=== PATIENT | female | born 1945 | race African-American/Black ===

== ENCOUNTER 2019-05-16 11:17 | Day surgery (SDC) | payer OTHER ==
[2019-05-16 11:59] VITALS: BMI 28.3
[2019-05-16] MEDS ORDERED: PROPOFOL 20 ML ONE ×2 (12:19)
[2019-05-16 14:28] VITALS: TEMP 98.2
[2019-05-16 14:43] VITALS: PULSE 88
[2019-05-16 14:45] VITALS: BP 134/66
== END 2019-05-16 13:52 | disposition home or self-care (01) ==
LOC: FASU-ENDO 11:17
PROVIDERS: ATTEND Internal Medicine Gastroenterology
PROC: 0DJD8ZZ Inspection of Lower Intestinal Tract, Via Natural or Artificial Opening Endoscopic (ICD-10-PCS; principal; 2019-05-16 12:56)
DX: Z12.11 Encounter for screening for malignant neoplasm of colon (principal); K57.30 Diverticulosis of large intestine without perforation or abscess without bleeding

== ENCOUNTER 2021-07-13 13:04 | Inpatient (IN) | payer OTHER ==
[2021-07-13 16:28] LABS: EPI CELLS 9 /uL (0-25.1); HYALINE CASTS 1 /uL (0-3.1); URINE APPEARANCE CLEAR; URINE BACTERIA 8098 /uL (0-1359); URINE BILIRUBIN NEGATIVE (NEGATIVE); URINE COLOR YELLOW; URINE GLUCOSE (UA) NEGATIVE (NEGATIVE); URINE KETONE NEGATIVE (NEGATIVE); URINE LEUK ESTERASE 2+ (NEGATIVE); URINE NITRITE POSITIVE (NEGATIVE); URINE PROTEIN NEGATIVE (NEGATIVE); URINE RBC 9 /uL (0-23.9); URINE UROBILINOGEN 0.2 mg/dL (0.2-1.0); URINE WBC 115 /uL (0-25.8)
[2021-07-13] MEDS ORDERED: CEFTRIAXONE 1 GM in DEXTROSE 5%-WATER - 100 ML IVPB ONE (16:35)
[2021-07-13] MEDS ORDERED: CEFTRIAXONE 1 GM/50 ML BAG ONE (16:40)
[2021-07-13 16:48] LABS: BASO % 0.2 % (0-2.0); EOS % 1.2 % (0-4.5); HEMATOCRIT 36.3 % (32.4-45.2); HEMOGLOBIN 11.5 GM/dL (10.7-15.3); LYMPH % 16.7 % (8-40); MCH 25.6 pg (25.7-33.7); MCHC 31.7 g/dl (32.0-36.0); MEAN CELL VOLUME 80.8 fl (80-96); MEAN PLT VOLUME 8.3 fl (7.5-11.1); MONO % 5.8 % (3.8-10.2); NEUT % 76.1 % (42.8-82.8); PLATELET COUNT 177 10^3/uL (134-434); RDW 15.4 % (11.6-15.6); WHITE BLOOD COUNT 4.7 K/mm3 (4.0-10.0)
[2021-07-13 16:52] LABS: BLOOD UREA NITROGEN 7.9 mg/dL (7-18); CALCIUM 8.6 mg/dL (8.5-10.1)
[2021-07-13 16:53] LABS: ALBUMIN 3.4 g/dl (3.4-5.0)
[2021-07-13 16:57] LABS: BILIRUBIN,TOTAL 0.3 mg/dL (0.2-1); CREATININE 0.9 mg/dL (0.55-1.3); TOT PROT 7.3 g/dl (6.4-8.2)
[2021-07-13 17:00] LABS: N-TERMINAL BNP 91.2 pg/ml (5-450)
[2021-07-13] MEDS: DOCUSATE SODIUM 100 MG CAPSULE (FP) PO SCH (21:59)
[2021-07-13] MEDS: ATORVASTATIN CA 10 MG TABLET (FP) PO SCH (21:59)
[2021-07-14 03:10] VITALS: BMI 29.9
[2021-07-14 08:15] LABS: HEMATOCRIT 35.7 % (32.4-45.2); HEMOGLOBIN 11.5 GM/dL (10.7-15.3); MCHC 32.2 g/dl (32.0-36.0); MEAN CELL VOLUME 80.8 fl (80-96); MEAN PLT VOLUME 8.1 fl (7.5-11.1); PLATELET COUNT 166 10^3/uL (134-434); RBC 4.42 M/mm3 (3.60-5.2); RDW 15.2 % (11.6-15.6); WHITE BLOOD COUNT 4.3 K/mm3 (4.0-10.0)
[2021-07-14 08:44] LABS: BLOOD UREA NITROGEN 8.3 mg/dL (7-18); CALCIUM 9.1 mg/dL (8.5-10.1)
[2021-07-14 08:45] LABS: ALBUMIN 3.2 g/dl (3.4-5.0); MAGNESIUM 2.3 mg/dL (1.8-2.4)
[2021-07-14 08:47] LABS: PHOSPHOROUS 3.5 mg/dL (2.5-4.9)
[2021-07-14 08:48] LABS: CREATININE 0.8 mg/dL (0.55-1.3)
[2021-07-14 08:49] LABS: BILIRUBIN,TOTAL 0.3 mg/dL (0.2-1)
[2021-07-14] MEDS ORDERED: cefTRIAXone SODIUM 1 GM VIAL ONE (09:30)
[2021-07-14] MEDS ORDERED: DEXTROSE 5%-WATER - 50 ML IVPB ONE (09:30)
[2021-07-14] MEDS: ISOSORBIDE MONONITRATE 30 MG TAB.SR.24H (FP) PO SCH (09:37)
[2021-07-14] MEDS: ENOXAPARIN NA (PORCINE) 40 MG/0.4 ML DISP.SYRIN SQ SCH (09:37)
[2021-07-14] MEDS: DOCUSATE SODIUM 100 MG CAPSULE (FP) PO SCH ×2 (09:37→23:10)
[2021-07-14] MEDS: LEVOTHYROXINE NA 25 MCG TABLET (FP) PO SCH (09:37)
[2021-07-14] MEDS: CEFTRIAXONE 1 GM in DEXTROSE 5%-WATER - 50 ML IVPB SCH (09:38)
[2021-07-14] MEDS ORDERED: OLANZapine 2.5 MG TABLET PO SCH (10:00)
[2021-07-14] MEDS ORDERED: PATIENT'S OWN MEDICATION (NON-FORMULARY) (Mirabegron [Myrbetriq] 25 MG Tab.Er.24h) PO SCH (10:00)
[2021-07-14] MEDS ORDERED: POLYETHYLENE GLYCOL 3350 119 GM BTL PO SCH (10:00)
[2021-07-14] MEDS: POLYETHYLENE GLYCOL (HEALTHYLAX) 3350 17 GM PACKET PO SCH (11:11)
[2021-07-14] MEDS: AMANTADINE HCL 100 MG TABLET PO SCH (11:35)
[2021-07-14] MEDS ORDERED: MECLIZINE HCL 25 MG TABLET (FP) PO PRN (15:40)
[2021-07-14] MEDS: ATORVASTATIN CA 10 MG TABLET (FP) PO SCH (23:10)
[2021-07-15] MEDS: LEVOTHYROXINE NA 25 MCG TABLET (FP) PO SCH (06:28)
[2021-07-15 07:46] LABS: BASO % 0.3 % (0-2.0); EOS % 2.9 % (0-4.5); HEMATOCRIT 34.9 % (32.4-45.2); HEMOGLOBIN 11.5 GM/dL (10.7-15.3); LYMPH % 19.1 % (8-40); MCH 26.2 pg (25.7-33.7); MCHC 32.8 g/dl (32.0-36.0); MEAN CELL VOLUME 79.9 fl (80-96); MEAN PLT VOLUME 8.3 fl (7.5-11.1); MONO % 8.1 % (3.8-10.2); NEUT % 69.6 % (42.8-82.8); PLATELET COUNT 171 10^3/uL (134-434); RBC 4.38 M/mm3 (3.60-5.2); RDW 15.5 % (11.6-15.6); WHITE BLOOD COUNT 3.8 K/mm3 (4.0-10.0)
[2021-07-15 08:00] LABS: CALCIUM 8.5 mg/dL (8.5-10.1)
[2021-07-15 08:01] LABS: BLOOD UREA NITROGEN 13.2 mg/dL (7-18)
[2021-07-15] MEDS ORDERED: DEXTROSE 5%-WATER - 50 ML IVPB ONE (10:19)
[2021-07-15] MEDS ORDERED: cefTRIAXone SODIUM 1 GM VIAL ONE (10:19)
[2021-07-15] MEDS: ISOSORBIDE MONONITRATE 30 MG TAB.SR.24H (FP) PO SCH (10:25)
[2021-07-15] MEDS: DOCUSATE SODIUM 100 MG CAPSULE (FP) PO SCH ×2 (10:25→22:30)
[2021-07-15] MEDS: ASPIRIN COATED 81 MG TABLET.EC PO SCH (10:25)
[2021-07-15] MEDS: AMANTADINE HCL 100 MG TABLET PO SCH (10:25)
[2021-07-15] MEDS: OLANZapine 10 MG TABLET PO SCH (10:25)
[2021-07-15] MEDS: POLYETHYLENE GLYCOL (HEALTHYLAX) 3350 17 GM PACKET PO SCH (10:26)
[2021-07-15] MEDS: CEFTRIAXONE 1 GM in DEXTROSE 5%-WATER - 50 ML IVPB SCH (10:26)
[2021-07-15] MEDS: ENOXAPARIN NA (PORCINE) 40 MG/0.4 ML DISP.SYRIN SQ SCH (10:26)
[2021-07-15] MEDS: ATORVASTATIN CA 10 MG TABLET (FP) PO SCH (22:30)
[2021-07-16] MEDS: LEVOTHYROXINE NA 25 MCG TABLET (FP) PO SCH (06:06)
[2021-07-16 07:09] LABS: BASO % 0.3 % (0-2.0); EOS % 3.6 % (0-4.5); HEMATOCRIT 36.2 % (32.4-45.2); HEMOGLOBIN 11.5 GM/dL (10.7-15.3); LYMPH % 23.2 % (8-40); MCH 25.7 pg (25.7-33.7); MCHC 31.9 g/dl (32.0-36.0); MEAN CELL VOLUME 80.8 fl (80-96); MEAN PLT VOLUME 8.5 fl (7.5-11.1); NEUT % 64.9 % (42.8-82.8); PLATELET COUNT 168 10^3/uL (134-434); RBC 4.48 M/mm3 (3.60-5.2); RDW 15.4 % (11.6-15.6); WHITE BLOOD COUNT 4.2 K/mm3 (4.0-10.0)
[2021-07-16 07:27] LABS: CALCIUM 8.4 mg/dL (8.5-10.1)
[2021-07-16 07:28] LABS: BLOOD UREA NITROGEN 13.4 mg/dL (7-18)
[2021-07-16 07:34] LABS: CREATININE 0.9 mg/dL (0.55-1.3)
[2021-07-16 08:53] VITALS: BP 134/78; PULSE 71; TEMP 97.9
[2021-07-16] MEDS ORDERED: cefTRIAXone SODIUM 1 GM VIAL ONE (10:19)
[2021-07-16] MEDS ORDERED: DEXTROSE 5%-WATER - 50 ML IVPB ONE (10:19)
[2021-07-16] MEDS: ASPIRIN COATED 81 MG TABLET.EC PO SCH (10:23)
[2021-07-16] MEDS: AMANTADINE HCL 100 MG TABLET PO SCH (10:23)
[2021-07-16] MEDS: OLANZapine 10 MG TABLET PO SCH (10:24)
[2021-07-16] MEDS: DOCUSATE SODIUM 100 MG CAPSULE (FP) PO SCH (10:24)
[2021-07-16] MEDS: ISOSORBIDE MONONITRATE 30 MG TAB.SR.24H (FP) PO SCH (10:24)
[2021-07-16] MEDS: POLYETHYLENE GLYCOL (HEALTHYLAX) 3350 17 GM PACKET PO SCH (10:24)
[2021-07-16] MEDS: ENOXAPARIN NA (PORCINE) 40 MG/0.4 ML DISP.SYRIN SQ SCH (10:24)
[2021-07-16] MEDS: CEFTRIAXONE 1 GM in DEXTROSE 5%-WATER - 50 ML IVPB SCH (10:25)
== END 2021-07-16 14:53 | disposition home or self-care (01) | DRG 690 ==
LOC: JER 13:04 → INTOOBSV 17:49 → JERBED 17:49 → J5S 20:18 → OBSVTOIN 07-14 10:39
PROVIDERS: ADMIT Internal Medicine; ATTEND Internal Medicine
DX: N39.0 Urinary tract infection, site not specified (principal); I10 Essential (primary) hypertension; D64.9 Anemia, unspecified; B96.20 Unspecified Escherichia coli [E. coli] as the cause of diseases classified elsewhere; E03.9 Hypothyroidism, unspecified; R26.2 Difficulty in walking, not elsewhere classified; K57.90 Diverticulosis of intestine, part unspecified, without perforation or abscess without bleeding; K64.9 Unspecified hemorrhoids; M41.9 Scoliosis, unspecified
CPT/HCPCS: 36415; 71045-TC-FY; 80048; 80053; 81003; 82962; 83735; 83880; 84100; 84443; 84484; 85025; 85027; 86850; 86900; 86901; 87086; 87186; 93005; 93010; 94010; 97116-GP; 97161-GP; 99285-25; C9803-CS; G0378; U0003; U0005

== ENCOUNTER 2022-06-19 18:32 | Inpatient (IN) | payer OTHER ==
[2022-06-19 20:15] LABS: BASO % 0.3 % (0-2.0); EOS % 0.2 % (0-4.5); HEMATOCRIT 36.1 % (32.4-45.2); HEMOGLOBIN 11.7 GM/dL (10.7-15.3); LYMPH % 15.3 % (8-40); MCH 25.9 pg (25.7-33.7); MCHC 32.5 g/dl (32.0-36.0); MEAN CELL VOLUME 79.6 fl (80-96); MEAN PLT VOLUME 8.7 fl (7.5-11.1); NEUT % 78.2 % (42.8-82.8); PLATELET COUNT 153 10^3/uL (134-434); RBC 4.53 M/mm3 (3.60-5.2); RDW 15.9 % (11.6-15.6)
[2022-06-19 20:39] LABS: CALCIUM 8.8 mg/dL (8.5-10.1)
[2022-06-19 20:40] LABS: ALBUMIN 3.2 g/dl (3.4-5.0); MAGNESIUM 2.2 mg/dL (1.8-2.4)
[2022-06-19 20:43] LABS: CREATININE 1.1 mg/dL (0.55-1.3)
[2022-06-19 20:45] LABS: BILIRUBIN,TOTAL 0.4 mg/dL (0.2-1); TOT PROT 7.1 g/dl (6.4-8.2)
[2022-06-19] MEDS ORDERED: ACETAMINOPHEN 325 MG TABLET (FP) PO PRN (22:30)
[2022-06-19 23:22] LABS: URINE APPEARANCE CLEAR; URINE BILIRUBIN NEGATIVE (NEGATIVE); URINE COLOR YELLOW; URINE GLUCOSE (UA) NEGATIVE (NEGATIVE); URINE KETONE NEGATIVE (NEGATIVE); URINE LEUK ESTERASE NEGATIVE (NEGATIVE); URINE NITRITE NEGATIVE (NEGATIVE); URINE PROTEIN NEGATIVE (NEGATIVE); URINE UROBILINOGEN 0.2 mg/dL (0.2-1.0)
[2022-06-19 23:22] LABS: INR 1.02 (0.83-1.09); PROTHROMBIN TIME (PATIENT) 11.8 SEC (9.7-13.0)
[2022-06-19 23:25] LABS: ACTIVATED PTT 17.3 SECONDS (25.2-36.5)
[2022-06-19] MEDS ORDERED: ASPIRIN 81 MG CHEWABLE TABLETS PO ONE (23:42)
[2022-06-19] MEDS ORDERED: ASPIRIN 81 MG CHEWABLE TABLETS ONE (23:47)
[2022-06-20 01:35] VITALS: BMI 26.8
[2022-06-20] MEDS: LEVOTHYROXINE NA 25 MCG TABLET (FP) PO SCH (06:23)
[2022-06-20 08:24] LABS: HEMATOCRIT 34.4 % (32.4-45.2); HEMOGLOBIN 11.4 GM/dL (10.7-15.3); MCH 26.2 pg (25.7-33.7); MCHC 33.2 g/dl (32.0-36.0); MEAN CELL VOLUME 79.1 fl (80-96); MEAN PLT VOLUME 8.9 fl (7.5-11.1); PLATELET COUNT 144 10^3/uL (134-434); RBC 4.36 M/mm3 (3.60-5.2); RDW 16.1 % (11.6-15.6); WHITE BLOOD COUNT 4.9 K/mm3 (4.0-10.0)
[2022-06-20 08:44] LABS: CALCIUM 8.6 mg/dL (8.5-10.1)
[2022-06-20 08:45] LABS: BLOOD UREA NITROGEN 8.9 mg/dL (7-18)
[2022-06-20 08:48] LABS: CREATININE 0.9 mg/dL (0.55-1.3); PHOSPHOROUS 3.6 mg/dL (2.5-4.9)
[2022-06-20] MEDS: ASPIRIN COATED 81 MG TABLET.EC PO SCH (09:31)
[2022-06-20] MEDS: METOPROLOL TARTRATE 50 MG TABLET (FP) PO SCH ×2 (09:31→21:42)
[2022-06-20] MEDS: ASCORBIC ACID 500 MG TABLET (FP) PO SCH (09:31)
[2022-06-20] MEDS: ISOSORBIDE MONONITRATE 30 MG TAB.SR.24H (FP) PO SCH (09:31)
[2022-06-20] MEDS: AMANTADINE HCL 100 MG TABLET PO SCH (09:31)
[2022-06-20] MEDS: OLANZAPINE 10 MG, OLANZAPINE 2.5 MG PO SCH ×2 (09:31→21:42)
[2022-06-20] MEDS ORDERED: OLANZapine 2.5 MG TABLET PO SCH (10:00)
[2022-06-20] MEDS: ATORVASTATIN CA 10 MG TABLET (FP) PO SCH (21:42)
[2022-06-21] MEDS: LEVOTHYROXINE NA 25 MCG TABLET (FP) PO SCH (06:08)
[2022-06-21 07:01] LABS: BASO % 0.3 % (0-2.0); EOS % 2.3 % (0-4.5); HEMATOCRIT 33.9 % (32.4-45.2); LYMPH % 26.9 % (8-40); MCH 25.9 pg (25.7-33.7); MCHC 32.4 g/dl (32.0-36.0); MEAN CELL VOLUME 79.9 fl (80-96); MONO % 10.3 % (3.8-10.2); NEUT % 60.2 % (42.8-82.8); PLATELET COUNT 145 10^3/uL (134-434); RBC 4.25 M/mm3 (3.60-5.2); RDW 15.6 % (11.6-15.6); WHITE BLOOD COUNT 4.6 K/mm3 (4.0-10.0)
[2022-06-21 07:24] LABS: CALCIUM 8.4 mg/dL (8.5-10.1)
[2022-06-21 07:25] LABS: BLOOD UREA NITROGEN 14.1 mg/dL (7-18)
[2022-06-21] MEDS: AMANTADINE HCL 100 MG TABLET PO SCH (10:56)
[2022-06-21] MEDS: ASCORBIC ACID 500 MG TABLET (FP) PO SCH (10:56)
[2022-06-21] MEDS: OLANZAPINE 10 MG, OLANZAPINE 2.5 MG PO SCH ×2 (10:56→22:13)
[2022-06-21] MEDS: METOPROLOL TARTRATE 50 MG TABLET (FP) PO SCH ×2 (10:56→22:13)
[2022-06-21] MEDS: ISOSORBIDE MONONITRATE 30 MG TAB.SR.24H (FP) PO SCH (10:56)
[2022-06-21] MEDS: ASPIRIN COATED 81 MG TABLET.EC PO SCH (10:56)
[2022-06-21] MEDS: ATORVASTATIN CA 10 MG TABLET (FP) PO SCH (22:13)
[2022-06-22] MEDS: LEVOTHYROXINE NA 25 MCG TABLET (FP) PO SCH ×2 (05:52→10:00)
[2022-06-22] MEDS: ASCORBIC ACID 500 MG TABLET (FP) PO SCH (10:01)
[2022-06-22] MEDS: ASPIRIN COATED 81 MG TABLET.EC PO SCH (10:01)
[2022-06-22] MEDS: METOPROLOL TARTRATE 50 MG TABLET (FP) PO SCH ×2 (10:01→22:17)
[2022-06-22] MEDS: ISOSORBIDE MONONITRATE 30 MG TAB.SR.24H (FP) PO SCH (10:01)
[2022-06-22] MEDS: OLANZAPINE 10 MG, OLANZAPINE 2.5 MG PO SCH ×2 (10:02→22:17)
[2022-06-22] MEDS: AMANTADINE HCL 100 MG TABLET PO SCH (10:02)
[2022-06-22] MEDS: ATORVASTATIN CA 10 MG TABLET (FP) PO SCH (22:16)
[2022-06-23] MEDS: LEVOTHYROXINE NA 25 MCG TABLET (FP) PO SCH (06:32)
[2022-06-23] MEDS ORDERED: ACETAMINOPHEN 325 MG TABLET (FP) PO PRN (07:18)
[2022-06-23] MEDS: ISOSORBIDE MONONITRATE 30 MG TAB.SR.24H (FP) PO SCH (09:33)
[2022-06-23] MEDS: ASPIRIN COATED 81 MG TABLET.EC PO SCH (09:33)
[2022-06-23] MEDS: OLANZAPINE 10 MG, OLANZAPINE 2.5 MG PO SCH (09:33)
[2022-06-23] MEDS: METOPROLOL TARTRATE 50 MG TABLET (FP) PO SCH ×2 (09:33→21:58)
[2022-06-23] MEDS: ASCORBIC ACID 500 MG TABLET (FP) PO SCH (09:33)
[2022-06-23] MEDS: AMANTADINE HCL 100 MG TABLET PO SCH (09:34)
[2022-06-23] MEDS ORDERED: ATORVASTATIN CA 10 MG TABLET (FP) PO SCH (22:00)
[2022-06-24] MEDS: OLANZAPINE 10 MG, OLANZAPINE 2.5 MG PO SCH ×2 (00:26→09:48)
[2022-06-24 03:53] VITALS: RESP 18
[2022-06-24] MEDS ORDERED: LEVOTHYROXINE NA 25 MCG TABLET (FP) PO SCH (07:00)
[2022-06-24] MEDS: ISOSORBIDE MONONITRATE 30 MG TAB.SR.24H (FP) PO SCH (09:47)
[2022-06-24] MEDS: ASPIRIN COATED 81 MG TABLET.EC PO SCH (09:47)
[2022-06-24] MEDS: ASCORBIC ACID 500 MG TABLET (FP) PO SCH (09:47)
[2022-06-24] MEDS: METOPROLOL TARTRATE 50 MG TABLET (FP) PO SCH (09:47)
[2022-06-24] MEDS: AMANTADINE HCL 100 MG TABLET PO SCH (09:48)
[2022-06-24 10:36] VITALS: TEMP 98.1
[2022-06-24 15:33] VITALS: BP 118/68; PULSE 63
[2022-06-24] MEDS ORDERED: ATORVASTATIN CA 40 MG TABLET (FP) PO SCH (22:00)
[2022-06-25] MEDS ORDERED: LEVOTHYROXINE NA 25 MCG TABLET (FP) PO SCH (07:00)
== END 2022-06-24 18:36 | DRG 65 ==
LOC: JER 18:32 → JERBED 21:49 → J4W 06-20 01:36 → OBSVTOIN 06-21 10:19
PROVIDERS: ADMIT Internal Medicine; ATTEND Internal Medicine
DX: I63.89 Other cerebral infarction (principal); F20.89 Other schizophrenia; I24.8 Other forms of acute ischemic heart disease; I10 Essential (primary) hypertension; E78.5 Hyperlipidemia, unspecified; F03.90 Unspecified dementia, unspecified severity, without behavioral disturbance, psychotic disturbance, mood disturbance, and anxiety; I25.10 Atherosclerotic heart disease of native coronary artery without angina pectoris; K57.90 Diverticulosis of intestine, part unspecified, without perforation or abscess without bleeding; D64.9 Anemia, unspecified; E03.9 Hypothyroidism, unspecified; R29.6 Repeated falls; K14.8 Other diseases of tongue; R55 Syncope and collapse; R15.9 Full incontinence of feces; W01.0XXA Fall on same level from slipping, tripping and stumbling without subsequent striking against object, initial encounter; Y93.89 Activity, other specified; Y92.098 Other place in other non-institutional residence as the place of occurrence of the external cause
CPT/HCPCS: 0241U-QW; 36415; 70450-TC; 70551-TC; 71045-TC-FY; 72170-TC-FY; 80048; 80053; 80061; 81003; 83735; 84100; 84443; 84484; 85025; 85027; 85610; 85730; 87086; 93005; 93010; 93306-TC; 93880-TC; 97116-GP; 97162-GP; 99285-25; C9803-CS; G0378; U0003; U0005

== ENCOUNTER 2022-09-12 14:58 | Inpatient (IN) | payer OTHER ==
[2022-09-12 15:45] VITALS: BMI 30.2
[2022-09-12 16:32] LABS: BASO % 0.4 % (0-2.0); EOS % 0.7 % (0-4.5); HEMOGLOBIN 11.2 GM/dL (10.7-15.3); LYMPH % 20.9 % (8-40); MEAN CELL VOLUME 81.2 fl (80-96); MEAN PLT VOLUME 8.7 fl (7.5-11.1); MONO % 8.1 % (3.8-10.2); NEUT % 69.9 % (42.8-82.8); PLATELET COUNT 167 10^3/uL (134-434); RBC 4.31 M/mm3 (3.60-5.2); RDW 16.5 % (11.6-15.6); WHITE BLOOD COUNT 5.3 K/mm3 (4.0-10.0)
[2022-09-12 16:39] LABS: INR 1.05 (0.83-1.09); PROTHROMBIN TIME (PATIENT) 12.2 SEC (9.7-13.0)
[2022-09-12 16:41] LABS: ACTIVATED PTT 27.5 SECONDS (25.2-36.5)
[2022-09-12 16:48] LABS: POTASSIUM 3.9 mmol/L (3.5-5.1)
[2022-09-12 16:50] LABS: ALBUMIN 3.5 g/dl (3.4-5.0); CALCIUM 9.4 mg/dL (8.5-10.1)
[2022-09-12 16:51] LABS: BLOOD UREA NITROGEN 10.8 mg/dL (7-18); MAGNESIUM 2.2 mg/dL (1.8-2.4)
[2022-09-12 16:55] LABS: BILIRUBIN,TOTAL 0.4 mg/dL (0.2-1)
[2022-09-12] MEDS ORDERED: LACTATED RINGERS SOLUTION 1,000 ML/1,000 ML INFUS.BAG IV SCH (17:00)
[2022-09-12 18:25] LABS: EPI CELLS 4 /uL (0-25.1); HYALINE CASTS 0 /uL (0-3.1); URINE APPEARANCE CLEAR; URINE BACTERIA 10 /uL (0-1359); URINE BILIRUBIN NEGATIVE (NEGATIVE); URINE COLOR YELLOW; URINE GLUCOSE (UA) NEGATIVE (NEGATIVE); URINE KETONE NEGATIVE (NEGATIVE); URINE LEUK ESTERASE TRACE (NEGATIVE); URINE NITRITE NEGATIVE (NEGATIVE); URINE PROTEIN NEGATIVE (NEGATIVE); URINE RBC 5 /uL (0-23.9); URINE UROBILINOGEN 0.2 mg/dL (0.2-1.0); URINE WBC 6 /uL (0-25.8)
[2022-09-13 06:30] LABS: BASO % 0.4 % (0-2.0); EOS % 2.1 % (0-4.5); HEMATOCRIT 36.3 % (32.4-45.2); HEMOGLOBIN 11.6 GM/dL (10.7-15.3); LYMPH % 19.8 % (8-40); MCH 26.5 pg (25.7-33.7); MEAN CELL VOLUME 82.8 fl (80-96); MEAN PLT VOLUME 9.5 fl (7.5-11.1); MONO % 8.2 % (3.8-10.2); NEUT % 69.5 % (42.8-82.8); PLATELET COUNT 154 10^3/uL (134-434); RBC 4.39 M/mm3 (3.60-5.2); RDW 16.4 % (11.6-15.6); WHITE BLOOD COUNT 5.3 K/mm3 (4.0-10.0)
[2022-09-13] MEDS ORDERED: LEVOTHYROXINE NA 25 MCG TABLET (FP) PO SCH (07:00)
[2022-09-13 07:32] LABS: POTASSIUM 4.1 mmol/L (3.5-5.1)
[2022-09-13 07:37] LABS: CALCIUM 9.3 mg/dL (8.5-10.1)
[2022-09-13 07:38] LABS: BLOOD UREA NITROGEN 8.1 mg/dL (7-18)
[2022-09-13 07:41] LABS: CREATININE 0.8 mg/dL (0.55-1.3)
[2022-09-13] MEDS ORDERED: METOPROLOL TARTRATE 50 MG TABLET (FP) PO SCH (10:00)
[2022-09-13] MEDS ORDERED: ASPIRIN COATED 81 MG TABLET.EC PO SCH (10:00)
[2022-09-13] MEDS ORDERED: ASCORBIC ACID 500 MG TABLET (FP) PO SCH (10:00)
[2022-09-13] MEDS ORDERED: OLANZapine 10 MG TABLET PO SCH (10:00)
[2022-09-13] MEDS ORDERED: AMANTADINE HCL 100 MG TABLET PO SCH (10:00)
[2022-09-13] MEDS ORDERED: ISOSORBIDE MONONITRATE 30 MG TAB.SR.24H (FP) PO SCH (10:00)
[2022-09-13] MEDS ORDERED: LACTATED RINGERS SOLUTION 1,000 ML/1,000 ML INFUS.BAG IV SCH (13:45)
[2022-09-13] MEDS ORDERED: ATORVASTATIN CA 10 MG TABLET (FP) PO SCH (22:00)
[2022-09-13] MEDS: ATORVASTATIN CA 10 MG TABLET (FP) PO SCH (22:53)
[2022-09-13] MEDS: OLANZapine 10 MG TABLET PO SCH (22:53)
[2022-09-13] MEDS: METOPROLOL TARTRATE 50 MG TABLET (FP) PO SCH (22:54)
[2022-09-14] MEDS: LEVOTHYROXINE NA 25 MCG TABLET (FP) PO SCH (06:07)
[2022-09-14] MEDS: OLANZapine 10 MG TABLET PO SCH ×2 (09:47→22:18)
[2022-09-14] MEDS: ASPIRIN COATED 81 MG TABLET.EC PO SCH (09:47)
[2022-09-14] MEDS: METOPROLOL TARTRATE 50 MG TABLET (FP) PO SCH ×2 (09:47→22:18)
[2022-09-14] MEDS: ASCORBIC ACID 500 MG TABLET (FP) PO SCH (09:47)
[2022-09-14] MEDS: AMANTADINE HCL 100 MG TABLET PO SCH (09:47)
[2022-09-14] MEDS: ISOSORBIDE MONONITRATE 30 MG TAB.SR.24H (FP) PO SCH (09:47)
[2022-09-14 12:25] LABS: POTASSIUM 3.7 mmol/L (3.5-5.1)
[2022-09-14 12:30] LABS: CALCIUM 9.7 mg/dL (8.5-10.1)
[2022-09-14 12:31] LABS: ALBUMIN 3.9 g/dl (3.4-5.0); BLOOD UREA NITROGEN 7.8 mg/dL (7-18)
[2022-09-14 12:34] LABS: CREATININE 0.9 mg/dL (0.55-1.3)
[2022-09-14 12:36] LABS: BILIRUBIN,TOTAL 0.8 mg/dL (0.2-1)
[2022-09-14] MEDS: DEXTROSE 5%-WATER - 1,000 ML IV SCH (18:00)
[2022-09-14] MEDS: ATORVASTATIN CA 10 MG TABLET (FP) PO SCH (22:18)
[2022-09-15] MEDS: LEVOTHYROXINE NA 25 MCG TABLET (FP) PO SCH (06:14)
[2022-09-15 07:47] LABS: BASO % 0.2 % (0-2.0); EOS % 1.6 % (0-4.5); HEMATOCRIT 38.8 % (32.4-45.2); HEMOGLOBIN 12.2 GM/dL (10.7-15.3); LYMPH % 12.1 % (8-40); MCH 26.1 pg (25.7-33.7); MCHC 31.4 g/dl (32.0-36.0); MEAN CELL VOLUME 83.2 fl (80-96); MEAN PLT VOLUME 9.3 fl (7.5-11.1); MONO % 10.5 % (3.8-10.2); NEUT % 75.6 % (42.8-82.8); PLATELET COUNT 158 10^3/uL (134-434); RBC 4.66 M/mm3 (3.60-5.2); RDW 16.6 % (11.6-15.6)
[2022-09-15 07:55] LABS: POTASSIUM 3.6 mmol/L (3.5-5.1)
[2022-09-15 07:58] LABS: CALCIUM 9.4 mg/dL (8.5-10.1)
[2022-09-15 07:59] LABS: ALBUMIN 3.4 g/dl (3.4-5.0); BLOOD UREA NITROGEN 8.2 mg/dL (7-18)
[2022-09-15 08:02] LABS: CREATININE 1.1 mg/dL (0.55-1.3)
[2022-09-15 08:04] LABS: BILIRUBIN,TOTAL 0.9 mg/dL (0.2-1); TOT PROT 7.1 g/dl (6.4-8.2)
[2022-09-15] MEDS: ASPIRIN COATED 81 MG TABLET.EC PO SCH (11:26)
[2022-09-15] MEDS: ASCORBIC ACID 500 MG TABLET (FP) PO SCH (11:26)
[2022-09-15] MEDS: ISOSORBIDE MONONITRATE 30 MG TAB.SR.24H (FP) PO SCH (11:26)
[2022-09-15] MEDS: METOPROLOL TARTRATE 50 MG TABLET (FP) PO SCH ×2 (11:26→22:17)
[2022-09-15] MEDS: AMANTADINE HCL 100 MG TABLET PO SCH (11:27)
[2022-09-15] MEDS: OLANZapine 10 MG TABLET PO SCH ×2 (11:27→22:17)
[2022-09-15] MEDS: DEXTROSE 5%-WATER - 1,000 ML IV SCH (16:15)
[2022-09-15] MEDS: ATORVASTATIN CA 10 MG TABLET (FP) PO SCH (22:17)
[2022-09-16] MEDS: LEVOTHYROXINE NA 25 MCG TABLET (FP) PO SCH (06:28)
[2022-09-16 08:33] LABS: BASO % 0.3 % (0-2.0); EOS % 1.9 % (0-4.5); HEMATOCRIT 35.6 % (32.4-45.2); HEMOGLOBIN 11.5 GM/dL (10.7-15.3); LYMPH % 16.9 % (8-40); MCH 26.5 pg (25.7-33.7); MCHC 32.3 g/dl (32.0-36.0); MEAN CELL VOLUME 82.2 fl (80-96); MONO % 10.1 % (3.8-10.2); NEUT % 70.8 % (42.8-82.8); PLATELET COUNT 145 10^3/uL (134-434); RBC 4.34 M/mm3 (3.60-5.2); RDW 16.3 % (11.6-15.6); WHITE BLOOD COUNT 4.5 K/mm3 (4.0-10.0)
[2022-09-16 08:45] LABS: POTASSIUM 3.5 mmol/L (3.5-5.1)
[2022-09-16 08:48] LABS: BLOOD UREA NITROGEN 8.9 mg/dL (7-18)
[2022-09-16 09:16] VITALS: RESP 18
[2022-09-16] MEDS: ASPIRIN COATED 81 MG TABLET.EC PO SCH (09:35)
[2022-09-16] MEDS: OLANZapine 10 MG TABLET PO SCH ×2 (09:35→22:10)
[2022-09-16] MEDS: AMANTADINE HCL 100 MG TABLET PO SCH (09:35)
[2022-09-16] MEDS: ASCORBIC ACID 500 MG TABLET (FP) PO SCH (09:35)
[2022-09-16] MEDS: METOPROLOL TARTRATE 50 MG TABLET (FP) PO SCH ×2 (09:36→22:10)
[2022-09-16] MEDS: ISOSORBIDE MONONITRATE 30 MG TAB.SR.24H (FP) PO SCH (09:36)
[2022-09-16] MEDS: DEXTROSE 5%-WATER - 1,000 ML IV SCH (15:38)
[2022-09-16] MEDS: ATORVASTATIN CA 10 MG TABLET (FP) PO SCH (22:10)
[2022-09-17] MEDS: DEXTROSE 5%-WATER - 1,000 ML IV SCH (02:37)
[2022-09-17] MEDS: LEVOTHYROXINE NA 25 MCG TABLET (FP) PO SCH (06:42)
[2022-09-17 09:57] VITALS: BP 118/72; PULSE 69; TEMP 98.6
[2022-09-17] MEDS: OLANZapine 10 MG TABLET PO SCH (09:58)
[2022-09-17] MEDS: ASPIRIN COATED 81 MG TABLET.EC PO SCH (09:58)
[2022-09-17] MEDS: METOPROLOL TARTRATE 50 MG TABLET (FP) PO SCH (09:58)
[2022-09-17] MEDS: ISOSORBIDE MONONITRATE 30 MG TAB.SR.24H (FP) PO SCH (09:58)
[2022-09-17] MEDS: ASCORBIC ACID 500 MG TABLET (FP) PO SCH (09:58)
[2022-09-17] MEDS: AMANTADINE HCL 100 MG TABLET PO SCH (10:01)
== END 2022-09-17 16:50 | disposition home or self-care (01) | DRG 641 ==
LOC: JER 14:58 → JERBED 16:54 → J7W 09-13 11:55 → OBSVTOIN 09-14 15:47
PROVIDERS: ADMIT Internal Medicine; ATTEND Internal Medicine
DX: E87.0 Hyperosmolality and hypernatremia (principal); I50.32 Chronic diastolic (congestive) heart failure; F03.90 Unspecified dementia, unspecified severity, without behavioral disturbance, psychotic disturbance, mood disturbance, and anxiety; F20.9 Schizophrenia, unspecified; E78.5 Hyperlipidemia, unspecified; E03.9 Hypothyroidism, unspecified; I25.10 Atherosclerotic heart disease of native coronary artery without angina pectoris; R29.6 Repeated falls; S00.03XA Contusion of scalp, initial encounter; W19.XXXA Unspecified fall, initial encounter; Y93.89 Activity, other specified; Y92.89 Other specified places as the place of occurrence of the external cause; Y99.8 Other external cause status
CPT/HCPCS: 0241U-QW; 36415; 70450-TC; 71045-TC-FY; 72125-TC; 72170-TC-FY; 80048; 80053; 81003; 83735; 84443; 84484; 85025; 85610; 85730; 87086; 93005; 93010; 97116-GP; 97161-GP; 99285-25; G0378

== ENCOUNTER 2022-09-18 19:53 | Inpatient (IN) | payer OTHER ==
[2022-09-18 21:22] LABS: EPI CELLS >36 /uL (0-25.1); HYALINE CASTS 1 /uL (0-3.1); URINE APPEARANCE TURBID; URINE BACTERIA >9,000 /uL (0-1359); URINE BILIRUBIN NEGATIVE (NEGATIVE); URINE COLOR YELLOW; URINE GLUCOSE (UA) NEGATIVE (NEGATIVE); URINE KETONE TRACE (NEGATIVE); URINE LEUK ESTERASE 3+ (NEGATIVE); URINE NITRITE POSITIVE (NEGATIVE); URINE PROTEIN TRACE (NEGATIVE); URINE RBC 25 /uL (0-23.9); URINE WBC 1674 /uL (0-25.8)
[2022-09-18] MEDS ORDERED: CEFTRIAXONE 1 GM in DEXTROSE 5%-WATER - 100 ML IVPB ONE (21:41)
[2022-09-18] MEDS ORDERED: CEFTRIAXONE 1 GM/50 ML BAG ONE (22:08)
[2022-09-18 22:37] LABS: BASO % 0.2 % (0-2.0); EOS % 1.8 % (0-4.5); HEMATOCRIT 39.5 % (32.4-45.2); HEMOGLOBIN 12.5 GM/dL (10.7-15.3); MCHC 31.7 g/dl (32.0-36.0); MEAN PLT VOLUME 9.2 fl (7.5-11.1); MONO % 12.1 % (3.8-10.2); NEUT % 65.9 % (42.8-82.8); PLATELET COUNT 165 10^3/uL (134-434); RBC 4.82 M/mm3 (3.60-5.2); RDW 16.1 % (11.6-15.6); WHITE BLOOD COUNT 4.1 K/mm3 (4.0-10.0)
[2022-09-18 22:55] LABS: POTASSIUM 4.1 mmol/L (3.5-5.1)
[2022-09-18 22:58] LABS: ALBUMIN 3.8 g/dl (3.4-5.0); BLOOD UREA NITROGEN 18.6 mg/dL (7-18); CALCIUM 9.6 mg/dL (8.5-10.1); MAGNESIUM 2.2 mg/dL (1.8-2.4)
[2022-09-18 23:01] LABS: CREATININE 1.3 mg/dL (0.55-1.3)
[2022-09-18 23:03] LABS: BILIRUBIN,TOTAL 0.4 mg/dL (0.2-1); TOT PROT 7.8 g/dl (6.4-8.2)
[2022-09-18] MEDS ORDERED: DEXTROSE 5%-WATER - 1,000 ML IV SCH ×2 (23:15→23:45)
[2022-09-19] MEDS ORDERED: ACETAMINOPHEN 325 MG TABLET (FP) PO PRN (02:51)
[2022-09-19] MEDS: LEVOTHYROXINE NA 25 MCG TABLET (FP) PO SCH (06:03)
[2022-09-19 09:46] LABS: BASO % 0.3 % (0-2.0); EOS % 2.8 % (0-4.5); HEMATOCRIT 37.7 % (32.4-45.2); LYMPH % 15.9 % (8-40); MCH 26.2 pg (25.7-33.7); MCHC 31.8 g/dl (32.0-36.0); MEAN CELL VOLUME 82.6 fl (80-96); MEAN PLT VOLUME 9.7 fl (7.5-11.1); MONO % 8.1 % (3.8-10.2); NEUT % 72.9 % (42.8-82.8); PLATELET COUNT 155 10^3/uL (134-434); RBC 4.56 M/mm3 (3.60-5.2); RDW 16.1 % (11.6-15.6); WHITE BLOOD COUNT 4.4 K/mm3 (4.0-10.0)
[2022-09-19] MEDS: ISOSORBIDE MONONITRATE 30 MG TAB.SR.24H (FP) PO SCH (09:48)
[2022-09-19] MEDS: METOPROLOL TARTRATE 50 MG TABLET (FP) PO SCH ×3 (09:48→21:59)
[2022-09-19] MEDS: ASCORBIC ACID 500 MG TABLET (FP) PO SCH (09:48)
[2022-09-19] MEDS: CEFTRIAXONE 1 GM in DEXTROSE 5%-WATER - 50 ML IVPB SCH (09:48)
[2022-09-19] MEDS: ASPIRIN COATED 81 MG TABLET.EC PO SCH (09:48)
[2022-09-19] MEDS: AMANTADINE HCL 100 MG TABLET PO SCH (09:49)
[2022-09-19] MEDS: DEXTROSE 5%-WATER - 1,000 ML IV SCH (09:50)
[2022-09-19 10:02] LABS: POTASSIUM 3.8 mmol/L (3.5-5.1)
[2022-09-19 10:03] LABS: CALCIUM 9.2 mg/dL (8.5-10.1)
[2022-09-19 10:04] LABS: BLOOD UREA NITROGEN 14.4 mg/dL (7-18)
[2022-09-19] MEDS: ATORVASTATIN CA 10 MG TABLET (FP) PO SCH (21:56)
[2022-09-19] MEDS: OLANZapine 10 MG TABLET PO SCH (21:56)
[2022-09-20] MEDS: LEVOTHYROXINE NA 25 MCG TABLET (FP) PO SCH (06:09)
[2022-09-20] MEDS: ISOSORBIDE MONONITRATE 30 MG TAB.SR.24H (FP) PO SCH (10:13)
[2022-09-20] MEDS: ASCORBIC ACID 500 MG TABLET (FP) PO SCH (10:13)
[2022-09-20] MEDS: ASPIRIN COATED 81 MG TABLET.EC PO SCH (10:13)
[2022-09-20] MEDS: CEFTRIAXONE 1 GM in DEXTROSE 5%-WATER - 50 ML IVPB SCH (10:13)
[2022-09-20] MEDS: METOPROLOL TARTRATE 50 MG TABLET (FP) PO SCH ×2 (10:13→21:48)
[2022-09-20] MEDS: AMANTADINE HCL 100 MG TABLET PO SCH (10:14)
[2022-09-20 13:45] VITALS: BMI 25.0
[2022-09-20] MEDS: DEXTROSE 5%-WATER - 1,000 ML IV SCH (17:01)
[2022-09-20] MEDS: OLANZapine 10 MG TABLET PO SCH (21:48)
[2022-09-20] MEDS: ATORVASTATIN CA 10 MG TABLET (FP) PO SCH (21:48)
[2022-09-21] MEDS: LEVOTHYROXINE NA 25 MCG TABLET (FP) PO SCH (06:18)
[2022-09-21] MEDS: DEXTROSE 5%-WATER - 1,000 ML IV SCH (06:19)
[2022-09-21 09:45] LABS: BASO % 0.4 % (0-2.0); EOS % 3.2 % (0-4.5); HEMATOCRIT 35.7 % (32.4-45.2); HEMOGLOBIN 11.3 GM/dL (10.7-15.3); MCH 26.1 pg (25.7-33.7); MCHC 31.6 g/dl (32.0-36.0); MEAN CELL VOLUME 82.6 fl (80-96); MEAN PLT VOLUME 9.5 fl (7.5-11.1); MONO % 7.5 % (3.8-10.2); NEUT % 67.9 % (42.8-82.8); PLATELET COUNT 151 10^3/uL (134-434); RBC 4.32 M/mm3 (3.60-5.2); RDW 15.9 % (11.6-15.6); WHITE BLOOD COUNT 4.5 K/mm3 (4.0-10.0)
[2022-09-21 10:02] LABS: POTASSIUM 4.1 mmol/L (3.5-5.1)
[2022-09-21 10:06] LABS: BLOOD UREA NITROGEN 15.7 mg/dL (7-18)
[2022-09-21 10:11] LABS: CREATININE 0.9 mg/dL (0.55-1.3)
[2022-09-21] MEDS: ISOSORBIDE MONONITRATE 30 MG TAB.SR.24H (FP) PO SCH (10:25)
[2022-09-21] MEDS: CEFTRIAXONE 1 GM in DEXTROSE 5%-WATER - 50 ML IVPB SCH (10:26)
[2022-09-21] MEDS: ASPIRIN COATED 81 MG TABLET.EC PO SCH (10:26)
[2022-09-21] MEDS: ASCORBIC ACID 500 MG TABLET (FP) PO SCH (10:26)
[2022-09-21] MEDS: METOPROLOL TARTRATE 50 MG TABLET (FP) PO SCH ×2 (10:26→21:41)
[2022-09-21] MEDS: AMANTADINE HCL 100 MG TABLET PO SCH (10:27)
[2022-09-21] MEDS: OLANZapine 10 MG TABLET PO SCH (21:38)
[2022-09-21] MEDS: ATORVASTATIN CA 10 MG TABLET (FP) PO SCH (21:38)
[2022-09-22] MEDS: LEVOTHYROXINE NA 25 MCG TABLET (FP) PO SCH (06:13)
[2022-09-22] MEDS: METOPROLOL TARTRATE 50 MG TABLET (FP) PO SCH (09:35)
[2022-09-22] MEDS: ASCORBIC ACID 500 MG TABLET (FP) PO SCH (09:35)
[2022-09-22] MEDS: ISOSORBIDE MONONITRATE 30 MG TAB.SR.24H (FP) PO SCH (09:36)
[2022-09-22] MEDS: ASPIRIN COATED 81 MG TABLET.EC PO SCH (09:36)
[2022-09-22] MEDS: AMANTADINE HCL 100 MG TABLET PO SCH (09:37)
[2022-09-22] MEDS ORDERED: CEFTRIAXONE 1 GM in DEXTROSE 5%-WATER - 50 ML IVPB SCH (10:00)
[2022-09-22 16:24] VITALS: BP 116/70; PULSE 69; RESP 18; TEMP 98.4
== END 2022-09-22 17:01 | disposition home or self-care (01) | DRG 690 ==
LOC: JER 19:53 → JERBED 23:14 → J5S 09-19 02:56 → OBSVTOIN 09-21 11:21
PROVIDERS: ADMIT Internal Medicine; ATTEND Internal Medicine
DX: N39.0 Urinary tract infection, site not specified (principal); F20.89 Other schizophrenia; E87.0 Hyperosmolality and hypernatremia; B96.20 Unspecified Escherichia coli [E. coli] as the cause of diseases classified elsewhere; I11.0 Hypertensive heart disease with heart failure; I50.9 Heart failure, unspecified; I25.10 Atherosclerotic heart disease of native coronary artery without angina pectoris; E78.5 Hyperlipidemia, unspecified; E03.9 Hypothyroidism, unspecified; D64.9 Anemia, unspecified; K57.90 Diverticulosis of intestine, part unspecified, without perforation or abscess without bleeding; F03.90 Unspecified dementia, unspecified severity, without behavioral disturbance, psychotic disturbance, mood disturbance, and anxiety; E86.0 Dehydration; E87.5 Hyperkalemia; Z86.73 Personal history of transient ischemic attack (TIA), and cerebral infarction without residual deficits
CPT/HCPCS: 36415; 70450-TC; 71045-TC-FY; 80048; 80053; 81003; 82962; 83735; 84484; 85025; 87086; 87186; 87635; 93005; 93010; 97116-GP; 97161-GP; 99285-25; G0378

== ENCOUNTER 2022-12-24 17:19 | Inpatient (IN) | payer OTHER ==
[2022-12-24 17:54] VITALS: BMI 23.8
[2022-12-24 20:29] LABS: BASO % 0.4 % (0-2.0); EOS % 0.8 % (0-4.5); HEMATOCRIT 37.9 % (32.4-45.2); HEMOGLOBIN 12.4 GM/dL (10.7-15.3); LYMPH % 11.5 % (8-40); MCH 26.3 pg (25.7-33.7); MCHC 32.6 g/dl (32.0-36.0); MEAN CELL VOLUME 80.6 fl (80-96); MEAN PLT VOLUME 8.4 fl (7.5-11.1); MONO % 6.2 % (3.8-10.2); NEUT % 81.1 % (42.8-82.8); PLATELET COUNT 173 10^3/uL (134-434); RDW 15.4 % (11.6-15.6); WHITE BLOOD COUNT 6.9 K/mm3 (4.0-10.0)
[2022-12-24 20:52] LABS: ALBUMIN 3.4 g/dl (3.4-5.0); BLOOD UREA NITROGEN 9.7 mg/dL (7-18); CALCIUM 8.9 mg/dL (8.5-10.1)
[2022-12-24 20:55] LABS: CREATININE 0.9 mg/dL (0.55-1.3)
[2022-12-24 20:57] LABS: BILIRUBIN,TOTAL 0.4 mg/dL (0.2-1)
[2022-12-25 08:32] LABS: BASO % 0.3 % (0-2.0); EOS % 1.7 % (0-4.5); HEMATOCRIT 37.3 % (32.4-45.2); HEMOGLOBIN 11.9 GM/dL (10.7-15.3); LYMPH % 19.3 % (8-40); MCH 26.2 pg (25.7-33.7); MCHC 31.9 g/dl (32.0-36.0); MEAN CELL VOLUME 82.1 fl (80-96); MEAN PLT VOLUME 8.6 fl (7.5-11.1); NEUT % 72.7 % (42.8-82.8); PLATELET COUNT 153 10^3/uL (134-434); RBC 4.55 M/mm3 (3.60-5.2); RDW 15.7 % (11.6-15.6); WHITE BLOOD COUNT 4.6 K/mm3 (4.0-10.0)
[2022-12-25 08:43] LABS: POTASSIUM 3.8 mmol/L (3.5-5.1)
[2022-12-25 08:45] LABS: BLOOD UREA NITROGEN 8.8 mg/dL (7-18); CALCIUM 8.8 mg/dL (8.5-10.1)
[2022-12-25 08:49] LABS: CREATININE 0.8 mg/dL (0.55-1.3)
[2022-12-25] MEDS ORDERED: ACETAMINOPHEN 325 MG TABLET (FP) PO PRN (08:53)
[2022-12-25] MEDS: ISOSORBIDE MONONITRATE 30 MG TAB.SR.24H (FP) PO SCH (09:18)
[2022-12-25] MEDS: METOPROLOL TARTRATE 50 MG TABLET (FP) PO SCH ×4 (09:18→21:57)
[2022-12-25] MEDS: LEVOTHYROXINE NA 25 MCG TABLET (FP) PO SCH (09:18)
[2022-12-25] MEDS: ATORVASTATIN CA 10 MG TABLET (FP) PO SCH (09:18)
[2022-12-25] MEDS: OLANZapine 5 MG TABLET PO SCH (09:19)
[2022-12-25] MEDS: ASCORBIC ACID 500 MG TABLET (FP) PO SCH (09:19)
[2022-12-25] MEDS: AMANTADINE HCL 100 MG TABLET PO SCH (09:20)
[2022-12-25] MEDS: ASPIRIN COATED 81 MG TABLET.EC PO SCH (09:20)
[2022-12-26] MEDS: LEVOTHYROXINE NA 25 MCG TABLET (FP) PO SCH (09:06)
[2022-12-26] MEDS: OLANZapine 5 MG TABLET PO SCH (09:06)
[2022-12-26] MEDS: ISOSORBIDE MONONITRATE 30 MG TAB.SR.24H (FP) PO SCH (09:06)
[2022-12-26] MEDS: ASCORBIC ACID 500 MG TABLET (FP) PO SCH (09:06)
[2022-12-26] MEDS: METOPROLOL TARTRATE 50 MG TABLET (FP) PO SCH ×2 (09:06→21:48)
[2022-12-26] MEDS: ASPIRIN COATED 81 MG TABLET.EC PO SCH (09:06)
[2022-12-26] MEDS: AMANTADINE HCL 100 MG TABLET PO SCH (09:08)
[2022-12-26] MEDS: ATORVASTATIN CA 10 MG TABLET (FP) PO SCH (09:09)
[2022-12-27 07:28] LABS: BASO % 0.3 % (0-2.0); EOS % 2.8 % (0-4.5); LYMPH % 27.2 % (8-40); MCH 26.9 pg (25.7-33.7); MCHC 33.3 g/dl (32.0-36.0); MEAN CELL VOLUME 80.7 fl (80-96); MEAN PLT VOLUME 8.9 fl (7.5-11.1); MONO % 10.6 % (3.8-10.2); NEUT % 59.1 % (42.8-82.8); PLATELET COUNT 161 10^3/uL (134-434); RBC 4.45 M/mm3 (3.60-5.2); RDW 15.9 % (11.6-15.6); WHITE BLOOD COUNT 3.7 K/mm3 (4.0-10.0)
[2022-12-27 07:50] LABS: BLOOD UREA NITROGEN 9.7 mg/dL (7-18)
[2022-12-27 07:51] LABS: CALCIUM 9.1 mg/dL (8.5-10.1)
[2022-12-27 07:54] LABS: CREATININE 0.9 mg/dL (0.55-1.3)
[2022-12-27] MEDS: ATORVASTATIN CA 10 MG TABLET (FP) PO SCH (10:03)
[2022-12-27] MEDS: ASPIRIN COATED 81 MG TABLET.EC PO SCH (10:03)
[2022-12-27] MEDS: METOPROLOL TARTRATE 50 MG TABLET (FP) PO SCH ×2 (10:03→22:35)
[2022-12-27] MEDS: LEVOTHYROXINE NA 25 MCG TABLET (FP) PO SCH (10:03)
[2022-12-27] MEDS: OLANZapine 5 MG TABLET PO SCH (10:03)
[2022-12-27] MEDS: ASCORBIC ACID 500 MG TABLET (FP) PO SCH (10:03)
[2022-12-27] MEDS: AMANTADINE HCL 100 MG TABLET PO SCH (10:04)
[2022-12-27] MEDS: ISOSORBIDE MONONITRATE 30 MG TAB.SR.24H (FP) PO SCH (10:04)
[2022-12-28] MEDS: D5-1/2NS+10 MEQ KCL - 10 MEQ/1,000 ML INFUS.BAG IV SCH ×2 (11:07→11:08)
[2022-12-28] MEDS: OLANZapine 5 MG TABLET PO SCH (11:08)
[2022-12-28] MEDS: ATORVASTATIN CA 10 MG TABLET (FP) PO SCH (11:09)
[2022-12-28] MEDS: METOPROLOL TARTRATE 50 MG TABLET (FP) PO SCH ×2 (11:09→21:46)
[2022-12-28] MEDS: LEVOTHYROXINE NA 25 MCG TABLET (FP) PO SCH (11:09)
[2022-12-28] MEDS: AMANTADINE HCL 100 MG TABLET PO SCH (11:09)
[2022-12-28] MEDS: ISOSORBIDE MONONITRATE 30 MG TAB.SR.24H (FP) PO SCH (11:09)
[2022-12-28] MEDS: ASCORBIC ACID 500 MG TABLET (FP) PO SCH (11:09)
[2022-12-28] MEDS: ASPIRIN COATED 81 MG TABLET.EC PO SCH (11:11)
[2022-12-28 12:51] LABS: POTASSIUM 3.9 mmol/L (3.5-5.1)
[2022-12-28 12:52] LABS: CALCIUM 9.4 mg/dL (8.5-10.1)
[2022-12-28 12:53] LABS: BLOOD UREA NITROGEN 14.1 mg/dL (7-18)
[2022-12-28 12:56] LABS: CREATININE 1.1 mg/dL (0.55-1.3)
[2022-12-29] MEDS: D5-1/2NS+10 MEQ KCL - 10 MEQ/1,000 ML INFUS.BAG IV SCH ×3 (01:59→23:25)
[2022-12-29] MEDS ORDERED: LEVOTHYROXINE NA 25 MCG TABLET (FP) PO SCH (08:28)
[2022-12-29] MEDS: ASPIRIN COATED 81 MG TABLET.EC PO SCH (09:48)
[2022-12-29] MEDS: ASCORBIC ACID 500 MG TABLET (FP) PO SCH (09:48)
[2022-12-29] MEDS: OLANZapine 5 MG TABLET PO SCH (09:48)
[2022-12-29] MEDS: ISOSORBIDE MONONITRATE 30 MG TAB.SR.24H (FP) PO SCH (09:49)
[2022-12-29] MEDS: METOPROLOL TARTRATE 50 MG TABLET (FP) PO SCH ×2 (09:49→21:09)
[2022-12-29] MEDS: LEVOTHYROXINE NA 25 MCG TABLET (FP) PO SCH (09:49)
[2022-12-29] MEDS: AMANTADINE HCL 100 MG TABLET PO SCH (09:49)
[2022-12-29] MEDS: ATORVASTATIN CA 10 MG TABLET (FP) PO SCH (21:09)
[2022-12-30] MEDS: LEVOTHYROXINE NA 25 MCG TABLET (FP) PO SCH (06:18)
[2022-12-30 07:22] LABS: POTASSIUM 4.2 mmol/L (3.5-5.1)
[2022-12-30 07:34] LABS: BLOOD UREA NITROGEN 12.6 mg/dL (7-18); CALCIUM 8.2 mg/dL (8.5-10.1); CREATININE 0.8 mg/dL (0.55-1.3)
[2022-12-30] MEDS: D5-1/2NS+10 MEQ KCL - 10 MEQ/1,000 ML INFUS.BAG IV SCH (09:40)
[2022-12-30] MEDS: ASPIRIN COATED 81 MG TABLET.EC PO SCH (09:41)
[2022-12-30] MEDS: ISOSORBIDE MONONITRATE 30 MG TAB.SR.24H (FP) PO SCH (09:41)
[2022-12-30] MEDS: OLANZapine 5 MG TABLET PO SCH (09:42)
[2022-12-30] MEDS: AMANTADINE HCL 100 MG TABLET PO SCH (09:42)
[2022-12-30] MEDS: ASCORBIC ACID 500 MG TABLET (FP) PO SCH (09:42)
[2022-12-30] MEDS: METOPROLOL TARTRATE 50 MG TABLET (FP) PO SCH ×2 (09:42→22:13)
[2022-12-30 14:06] VITALS: RESP 18
[2022-12-30] MEDS: ATORVASTATIN CA 10 MG TABLET (FP) PO SCH (22:13)
[2022-12-31] MEDS: LEVOTHYROXINE NA 25 MCG TABLET (FP) PO SCH (06:07)
[2022-12-31] MEDS: OLANZapine 5 MG TABLET PO SCH (10:06)
[2022-12-31] MEDS: METOPROLOL TARTRATE 50 MG TABLET (FP) PO SCH (10:06)
[2022-12-31] MEDS: ASCORBIC ACID 500 MG TABLET (FP) PO SCH (10:06)
[2022-12-31] MEDS: AMANTADINE HCL 100 MG TABLET PO SCH (10:07)
[2022-12-31] MEDS: ASPIRIN COATED 81 MG TABLET.EC PO SCH (10:07)
[2022-12-31] MEDS: ISOSORBIDE MONONITRATE 30 MG TAB.SR.24H (FP) PO SCH (10:07)
[2022-12-31 14:46] VITALS: BP 128/73; PULSE 52; TEMP 97.6
== END 2022-12-31 14:53 | DRG 884 ==
LOC: JER 17:19 → JERBED 17:57 → J4S 21:15 → OBSVTOIN 12-28 17:53
PROVIDERS: ADMIT Internal Medicine; ATTEND Internal Medicine
DX: F03.90 Unspecified dementia, unspecified severity, without behavioral disturbance, psychotic disturbance, mood disturbance, and anxiety (principal); E87.0 Hyperosmolality and hypernatremia; E03.9 Hypothyroidism, unspecified; F20.9 Schizophrenia, unspecified; I25.10 Atherosclerotic heart disease of native coronary artery without angina pectoris; I11.0 Hypertensive heart disease with heart failure; I50.9 Heart failure, unspecified; E78.5 Hyperlipidemia, unspecified; R26.81 Unsteadiness on feet; E86.0 Dehydration
CPT/HCPCS: 36415; 80048; 80053; 82962; 85025; 97116-GP; 97161-GP; 99285-25; G0378

== ENCOUNTER 2023-03-31 01:42 | Observation (INO) | payer OTHER ==
[2023-03-31 01:56] VITALS: RESP 18; BMI 29.2
[2023-03-31 04:32] LABS: BASO % 0.3 % (0-2.0); EOS % 2.1 % (0-4.5); HEMATOCRIT 36.3 % (32.4-45.2); HEMOGLOBIN 11.8 GM/dL (10.7-15.3); LYMPH % 13.1 % (8-40); MCH 26.7 pg (25.7-33.7); MCHC 32.4 g/dl (32.0-36.0); MEAN CELL VOLUME 82.5 fl (80-96); MEAN PLT VOLUME 9.4 fl (7.5-11.1); MONO % 11.7 % (3.8-10.2); NEUT % 72.8 % (42.8-82.8); PLATELET COUNT 141 10^3/uL (134-434); RBC 4.41 M/mm3 (3.60-5.2); RDW 16.1 % (11.6-15.6)
[2023-03-31 04:46] LABS: INR 1.08 (0.83-1.09); PROTHROMBIN TIME (PATIENT) 12.5 SEC (9.7-13.0)
[2023-03-31 04:52] LABS: POTASSIUM 4.1 mmol/L (3.5-5.1)
[2023-03-31 04:57] LABS: ALBUMIN 3.2 g/dl (3.4-5.0); BLOOD UREA NITROGEN 11.3 mg/dL (7-18)
[2023-03-31 05:00] LABS: CREATININE 1.1 mg/dL (0.55-1.3)
[2023-03-31 05:01] LABS: BILIRUBIN,TOTAL 0.5 mg/dL (0.2-1); TOT PROT 7.1 g/dl (6.4-8.2)
[2023-03-31] MEDS ORDERED: ACETAMINOPHEN 325 MG TABLET (FP) PO PRN (05:35)
[2023-03-31] MEDS ORDERED: OLANZapine 10 MG TABLET PO SCH (10:00)
[2023-03-31] MEDS ORDERED: LEVOTHYROXINE NA 25 MCG TABLET (FP) PO SCH (10:00)
[2023-03-31] MEDS ORDERED: AMANTADINE HCL 100 MG TABLET PO SCH (10:00)
[2023-03-31 20:17] VITALS: BP 122/76; PULSE 90; TEMP 98.7
[2023-03-31] MEDS ORDERED: ATORVASTATIN CA 10 MG TABLET (FP) PO SCH (22:00)
== END 2023-03-31 16:15 ==
LOC: JER 01:42 → JERBED 05:39
PROVIDERS: ADMIT Internal Medicine; ATTEND Internal Medicine
DX: Z04.3 Encounter for examination and observation following other accident (principal); F02.80 Dementia in other diseases classified elsewhere, unspecified severity, without behavioral disturbance, psychotic disturbance, mood disturbance, and anxiety; D64.9 Anemia, unspecified; W18.39XA Other fall on same level, initial encounter; Y93.89 Activity, other specified; Y92.003 Bedroom of unspecified non-institutional (private) residence as the place of occurrence of the external cause; R42 Dizziness and giddiness; E03.9 Hypothyroidism, unspecified; I50.9 Heart failure, unspecified; I11.0 Hypertensive heart disease with heart failure; K92.2 Gastrointestinal hemorrhage, unspecified; G31.83 Neurocognitive disorder with Lewy bodies; R26.2 Difficulty in walking, not elsewhere classified; Z86.73 Personal history of transient ischemic attack (TIA), and cerebral infarction without residual deficits; Z88.8 Allergy status to other drugs, medicaments and biological substances
CPT/HCPCS: 36415; 70450-TC; 71045-TC-FY; 72125-TC; 80053; 83735; 84484; 85025; 85610; 93005; 93010; 97116-GP; 97161-GP; 99285-25; G0378

== ENCOUNTER 2023-04-10 16:49 | Inpatient (IN) | payer OTHER ==
[2023-04-10 18:31] LABS: BASO % 0.4 % (0-2.0); EOS % 1.9 % (0-4.5); HEMATOCRIT 32.1 % (32.4-45.2); HEMOGLOBIN 10.2 GM/dL (10.7-15.3); LYMPH % 20.5 % (8-40); MCH 26.1 pg (25.7-33.7); MCHC 31.8 g/dl (32.0-36.0); MEAN CELL VOLUME 82.3 fl (80-96); MEAN PLT VOLUME 8.2 fl (7.5-11.1); MONO % 7.1 % (3.8-10.2); NEUT % 70.1 % (42.8-82.8); PLATELET COUNT 204 10^3/uL (134-434); RDW 16.2 % (11.6-15.6); WHITE BLOOD COUNT 6.6 K/mm3 (4.0-10.0)
[2023-04-10 18:33] LABS: VENOUS BASE EXCESS 3.6 mmol/L (-2-2); VENOUS O2 SATURATION 41.7 % (70-80); VENOUS PCO2 54.2 mmHg (38-52); VENOUS PH 7.362 (7.310-7.410)
[2023-04-10 18:37] LABS: INR 1.06 (0.83-1.09); PROTHROMBIN TIME (PATIENT) 12.3 SEC (9.7-13.0)
[2023-04-10 18:40] LABS: ACTIVATED PTT 25.6 SECONDS (25.2-36.5)
[2023-04-10 18:56] LABS: POTASSIUM 4.2 mmol/L (3.5-5.1)
[2023-04-10 18:58] LABS: ALBUMIN 2.8 g/dl (3.4-5.0); CALCIUM 8.6 mg/dL (8.5-10.1)
[2023-04-10 18:59] LABS: BLOOD UREA NITROGEN 8.9 mg/dL (7-18)
[2023-04-10 19:01] LABS: CREATININE 1.1 mg/dL (0.55-1.3)
[2023-04-10 19:03] LABS: BILIRUBIN,TOTAL 0.3 mg/dL (0.2-1)
[2023-04-10] MEDS ORDERED: SODIUM CHLORIDE 0.9% 500 ML INFUS.BAG IV ONE (19:12)
[2023-04-10] MEDS ORDERED: ACETAMINOPHEN 1000 MG/100 ML BAG IVPB ONE (19:28)
[2023-04-10] MEDS ORDERED: ACETAMINOPHEN INJECTION 100 ML IVPB ONE (19:29)
[2023-04-10 23:16] LABS: PH,URINE 5.5 (5.0-8.0); URINE APPEARANCE CLOUDY; URINE BILIRUBIN NEGATIVE (NEGATIVE); URINE COLOR YELLOW; URINE GLUCOSE (UA) NEGATIVE (NEGATIVE); URINE KETONE NEGATIVE (NEGATIVE); URINE LEUK ESTERASE NEGATIVE (NEGATIVE); URINE NITRITE NEGATIVE (NEGATIVE); URINE PROTEIN NEGATIVE (NEGATIVE); URINE UROBILINOGEN 0.2 mg/dL (0.2-1.0)
[2023-04-11] MEDS: SODIUM CHLORIDE 0.45% 1,000 ML IV SCH (00:38)
[2023-04-11] MEDS ORDERED: ACETAMINOPHEN 1000 MG/100 ML BAG IVPB PRN (01:30)
[2023-04-11] MEDS ORDERED: POLYETHYLENE GLYCOL (HEALTHYLAX) 3350 17 GM PACKET PO ONE (06:45)
[2023-04-11] MEDS: ASCORBIC ACID 500 MG TABLET (FP) PO SCH (13:18)
[2023-04-11] MEDS: METOPROLOL TARTRATE 50 MG TABLET (FP) PO SCH ×2 (13:19→22:09)
[2023-04-11] MEDS: ASPIRIN COATED 81 MG TABLET.EC PO SCH (13:19)
[2023-04-11] MEDS: ISOSORBIDE MONONITRATE 30 MG TAB.SR.24H (FP) PO SCH (13:19)
[2023-04-11] MEDS: LIDOCAINE 4% PATCH TP SCH (13:20)
[2023-04-11] MEDS: OLANZapine 10 MG TABLET PO SCH (13:20)
[2023-04-11] MEDS: AMANTADINE HCL 100 MG TABLET PO SCH (13:23)
[2023-04-11] MEDS: LEVOTHYROXINE NA 25 MCG TABLET (FP) PO SCH (13:24)
[2023-04-11 14:27] VITALS: BMI 23.6
[2023-04-11] MEDS ORDERED: POLYETHYLENE GLYCOL (HEALTHYLAX) 3350 17 GM PACKET PO PRN (22:00)
[2023-04-11] MEDS: ATORVASTATIN CA 10 MG TABLET (FP) PO SCH (22:09)
[2023-04-11] MEDS: LIDOCAINE PATCH REMOVAL MC SCH (22:10)
[2023-04-12] MEDS: SODIUM CHLORIDE 0.45% 1,000 ML IV SCH (00:05)
[2023-04-12] MEDS ORDERED: ACETAMINOPHEN 325 MG TABLET (FP) PO PRN (01:30)
[2023-04-12] MEDS: LEVOTHYROXINE NA 25 MCG TABLET (FP) PO SCH (06:15)
[2023-04-12 09:07] LABS: BASO % 0.4 % (0-2.0); EOS % 1.3 % (0-4.5); HEMOGLOBIN 10.1 GM/dL (10.7-15.3); LYMPH % 17.8 % (8-40); MCH 26.3 pg (25.7-33.7); MCHC 31.7 g/dl (32.0-36.0); MEAN CELL VOLUME 83.1 fl (80-96); MEAN PLT VOLUME 8.6 fl (7.5-11.1); MONO % 6.8 % (3.8-10.2); NEUT % 73.7 % (42.8-82.8); PLATELET COUNT 219 10^3/uL (134-434); RBC 3.85 M/mm3 (3.60-5.2); WHITE BLOOD COUNT 6.1 K/mm3 (4.0-10.0)
[2023-04-12] MEDS: LIDOCAINE 4% PATCH TP SCH (09:17)
[2023-04-12] MEDS: ASCORBIC ACID 500 MG TABLET (FP) PO SCH (09:17)
[2023-04-12] MEDS: ISOSORBIDE MONONITRATE 30 MG TAB.SR.24H (FP) PO SCH (09:17)
[2023-04-12] MEDS: OLANZapine 10 MG TABLET PO SCH (09:17)
[2023-04-12] MEDS: ASPIRIN COATED 81 MG TABLET.EC PO SCH (09:17)
[2023-04-12] MEDS: METOPROLOL TARTRATE 50 MG TABLET (FP) PO SCH ×2 (09:17→21:32)
[2023-04-12] MEDS: AMANTADINE HCL 100 MG TABLET PO SCH (09:17)
[2023-04-12 09:37] LABS: POTASSIUM 4.5 mmol/L (3.5-5.1)
[2023-04-12 09:40] LABS: CALCIUM 8.3 mg/dL (8.5-10.1)
[2023-04-12 09:41] LABS: BLOOD UREA NITROGEN 8.2 mg/dL (7-18)
[2023-04-12 09:44] LABS: CREATININE 0.8 mg/dL (0.55-1.3)
[2023-04-12] MEDS ORDERED: OLANZapine 2.5 MG TABLET PO SCH (10:00)
[2023-04-12] MEDS ORDERED: OLANZapine 7.5 MG TABLET PO ONE (17:52)
[2023-04-12] MEDS: LIDOCAINE PATCH REMOVAL MC SCH ×2 (21:30→21:32)
[2023-04-12] MEDS: OLANZapine 5 MG TABLET PO SCH (21:32)
[2023-04-12] MEDS: ATORVASTATIN CA 10 MG TABLET (FP) PO SCH (21:32)
[2023-04-13] MEDS: LEVOTHYROXINE NA 25 MCG TABLET (FP) PO SCH (06:00)
[2023-04-13] MEDS: METOPROLOL TARTRATE 50 MG TABLET (FP) PO SCH ×2 (10:40→21:43)
[2023-04-13] MEDS: LIDOCAINE 4% PATCH TP SCH (10:40)
[2023-04-13] MEDS: AMANTADINE HCL 100 MG TABLET PO SCH (10:40)
[2023-04-13] MEDS: ISOSORBIDE MONONITRATE 30 MG TAB.SR.24H (FP) PO SCH (10:40)
[2023-04-13] MEDS: ASPIRIN COATED 81 MG TABLET.EC PO SCH (10:40)
[2023-04-13] MEDS: ASCORBIC ACID 500 MG TABLET (FP) PO SCH (10:40)
[2023-04-13] MEDS: ATORVASTATIN CA 10 MG TABLET (FP) PO SCH (21:43)
[2023-04-13] MEDS: OLANZapine 5 MG TABLET PO SCH (21:43)
[2023-04-13] MEDS: LIDOCAINE PATCH REMOVAL MC SCH (21:43)
[2023-04-14] MEDS: LEVOTHYROXINE NA 25 MCG TABLET (FP) PO SCH (06:00)
[2023-04-14] MEDS: AMANTADINE HCL 100 MG TABLET PO SCH (10:54)
[2023-04-14] MEDS: LIDOCAINE 4% PATCH TP SCH (10:54)
[2023-04-14] MEDS: METOPROLOL TARTRATE 50 MG TABLET (FP) PO SCH ×2 (10:55→22:09)
[2023-04-14] MEDS: ASPIRIN COATED 81 MG TABLET.EC PO SCH (10:55)
[2023-04-14] MEDS: ASCORBIC ACID 500 MG TABLET (FP) PO SCH (10:55)
[2023-04-14] MEDS: ISOSORBIDE MONONITRATE 30 MG TAB.SR.24H (FP) PO SCH (10:55)
[2023-04-14] MEDS ORDERED: ALPRAZolam 0.25 MG TABLET PO ONE (17:14)
[2023-04-14] MEDS: LIDOCAINE PATCH REMOVAL MC SCH (22:08)
[2023-04-14] MEDS: ATORVASTATIN CA 10 MG TABLET (FP) PO SCH (22:09)
[2023-04-14] MEDS: OLANZapine 5 MG TABLET PO SCH (22:09)
[2023-04-15] MEDS: LEVOTHYROXINE NA 25 MCG TABLET (FP) PO SCH (06:03)
[2023-04-15] MEDS: ISOSORBIDE MONONITRATE 30 MG TAB.SR.24H (FP) PO SCH (09:16)
[2023-04-15] MEDS: ASCORBIC ACID 500 MG TABLET (FP) PO SCH (09:16)
[2023-04-15] MEDS: ASPIRIN COATED 81 MG TABLET.EC PO SCH (09:16)
[2023-04-15] MEDS: METOPROLOL TARTRATE 50 MG TABLET (FP) PO SCH ×2 (09:16→22:10)
[2023-04-15] MEDS: LIDOCAINE 4% PATCH TP SCH (09:16)
[2023-04-15] MEDS: AMANTADINE HCL 100 MG TABLET PO SCH (09:17)
[2023-04-15 11:53] LABS: BASO % 0.4 % (0-2.0); EOS % 1.9 % (0-4.5); HEMATOCRIT 32.1 % (32.4-45.2); HEMOGLOBIN 10.3 GM/dL (10.7-15.3); LYMPH % 19.1 % (8-40); MCH 26.4 pg (25.7-33.7); MCHC 32.2 g/dl (32.0-36.0); MEAN PLT VOLUME 8.5 fl (7.5-11.1); MONO % 7.7 % (3.8-10.2); NEUT % 70.9 % (42.8-82.8); PLATELET COUNT 230 10^3/uL (134-434); RBC 3.91 M/mm3 (3.60-5.2); RDW 16.1 % (11.6-15.6); WHITE BLOOD COUNT 4.9 K/mm3 (4.0-10.0)
[2023-04-15 12:11] LABS: POTASSIUM 4.5 mmol/L (3.5-5.1)
[2023-04-15 12:18] LABS: BLOOD UREA NITROGEN 7.7 mg/dL (7-18); CALCIUM 8.1 mg/dL (8.5-10.1)
[2023-04-15 12:21] LABS: CREATININE 0.9 mg/dL (0.55-1.3)
[2023-04-15 14:09] VITALS: RESP 18
[2023-04-15] MEDS: ATORVASTATIN CA 10 MG TABLET (FP) PO SCH (22:10)
[2023-04-15] MEDS: LIDOCAINE PATCH REMOVAL MC SCH (22:10)
[2023-04-15] MEDS: OLANZapine 5 MG TABLET PO SCH (22:10)
[2023-04-16] MEDS: LEVOTHYROXINE NA 25 MCG TABLET (FP) PO SCH (06:04)
[2023-04-16 09:04] VITALS: BP 124/66; PULSE 62; TEMP 97.7
[2023-04-16] MEDS: ISOSORBIDE MONONITRATE 30 MG TAB.SR.24H (FP) PO SCH (09:04)
[2023-04-16] MEDS: METOPROLOL TARTRATE 50 MG TABLET (FP) PO SCH (09:04)
[2023-04-16] MEDS: ASCORBIC ACID 500 MG TABLET (FP) PO SCH (09:04)
[2023-04-16] MEDS: ASPIRIN COATED 81 MG TABLET.EC PO SCH (09:05)
[2023-04-16] MEDS: LIDOCAINE 4% PATCH TP SCH (09:05)
[2023-04-16] MEDS: AMANTADINE HCL 100 MG TABLET PO SCH (09:05)
== END 2023-04-16 10:15 | DRG 552 ==
LOC: JER 16:49 → JERBED 04-11 00:05 → J6S 04-11 12:23 → OBSVTOIN 04-12 11:28
PROVIDERS: ADMIT Internal Medicine; ATTEND Internal Medicine
DX: M54.9 Dorsalgia, unspecified (principal); I25.10 Atherosclerotic heart disease of native coronary artery without angina pectoris; M51.9 Unspecified thoracic, thoracolumbar and lumbosacral intervertebral disc disorder; I11.0 Hypertensive heart disease with heart failure; I50.9 Heart failure, unspecified; E78.5 Hyperlipidemia, unspecified; E03.9 Hypothyroidism, unspecified; D64.9 Anemia, unspecified; F20.9 Schizophrenia, unspecified; G31.83 Neurocognitive disorder with Lewy bodies; F02.80 Dementia in other diseases classified elsewhere, unspecified severity, without behavioral disturbance, psychotic disturbance, mood disturbance, and anxiety; G20.A1 Parkinson's disease without dyskinesia, without mention of fluctuations; R26.2 Difficulty in walking, not elsewhere classified
CPT/HCPCS: 0241U-QW; 36415; 70450-TC; 71045-TC-FY; 72128-TC; 72131-TC; 74176-TC; 80048; 80053; 81003; 82550; 82553; 82803; 83605; 84484; 85025; 85610; 85730; 86850; 86900; 86901; 87040; 87086; 87635; 93005; 93010; 97116-GP; 97162-GP; 99285-25; G0378